=== PATIENT | male | born 1955 | race African-American/Black ===

== ENCOUNTER 2017-05-23 14:07 | Inpatient (IN) | payer OTHER ==
--- NOTE | 2017-05-23 23:37 | HP ---
CIWA Score - CIWA Score Nausea/Vomitin Muscle Tremors: 4-Moderate,w/Arms Extend Anxiety: 4-Mod. Anxious/Guarded Agitation: 4-Moderately Restless Paroxysmal Sweats: 1-Minimal Palms Moist Orientation: 1-Uncertain about Date Tacttile Disturbances: 0-None Auditory Disturbances: 0-None Visual Disturbances: 2-Mild Sensitivity Headache: 1-Very Mild CIWA-Ar Total Score: 20 Admission ROS BHS - HPI Chief Complaint: C/O ETOH WITHDRAWAL SX'S. SEEKING DETOX Allergies/Adverse Reactions: Allergies Allergy/AdvReac Type Severity Reaction Status Date / Time Penicillins Allergy Severe Hives Verified 05/23/17 23:29 History of Present Illness: 62 Y.O. MALE WITH ALCOHOLISM ADMITTED TO DETOX. SELF REFERRED. HE IS KNOWN TO [facility]. DENIES ANY SIGNIFICANT PERIOD OF CLEAN TIME OR RECENT DETOX/ REHAB SERVICES Exam Limitations: No Limitations - Ebola screening Have you traveled outside of the country in the last 21 days: No Have you had contact with anyone from an Ebola affected area: No Have you been sick,other than usual withdrawal symptoms: No Do you have a fever: No - Review of Systems Constitutional: Chills, Loss of Appetite, Unintentional Wgt. Loss EENT: reports: Dental Problems (MISSING TEETH) Respiratory: reports: Shortness of Breath, Other (H/O ASTHMA) Cardiac: reports: No Symptoms Reported GI: reports: Nausea, Poor Appetite : reports: No Symptoms Reported, Other (H/O PROSTATE CA) Musculoskeletal: reports: Back Pain Integumentary: reports: No Symptoms Reported Neuro: reports: No Symptoms reported Endocrine: reports: No Symptoms Reported Hematology: reports: No Symptoms Reported Psychiatric: reports: Anxious, Depressed Other Systems: Reviewed and Negative Patient History - Patient Medical History Hx Anemia: No Hx Asthma: Yes Hx Chronic Obstructive Pulmonary Disease (COPD): No Hx Cancer: No Hx Cardiac Disorders: No Hx Congestive Heart Failure: No Hx Hypertension: Yes Hx Hypercholesterolemia: Yes Hx Pacemaker: No HX Cerebrovascular Accident: No Hx Seizures: No Hx Dementia: No Hx Diabetes: No Hx Gastrointestinal Disorders: No Hx Liver Disease: No Hx Genitourinary Disorders: Yes (prostate ca) Hx Sexually Transmitted Disorders: No Hx Renal Disease (ESRD): No Hx Thyroid Disease: No Hx Human Immunodeficiency Virus (HIV): No Hx Hepatitis C: No Hx Depression: No Hx Suicide Attempt: No Hx Bipolar Disorder: No Hx Schizophrenia: No Other Medical History: DENIES - Patient Surgical History Past Surgical History: Yes Hx Orthopedic Surgery: Yes (knee, hip,back) Anesthesia Reaction: No - PPD History Previous Implant?: Yes Documented Results: Negative w/o proof Implanted On Prior R Admission?: Yes PPD to be Administered?: Yes - Smoking Cessation Smoking history: Current every day smoker Have you smoked in the past 12 months: Yes Aproximately how many cigarettes per day: 10 If you are a former smoker, when did you quit?: 09/19 Hx Chewing Tobacco Use: No Initiated information on smoking cessation: No - Substance & Tx. History Hx Alcohol Use: Yes Hx Substance Use: Yes Substance Use Type: Alcohol, Cocaine Hx Substance Use Treatment: Yes ([facility]) - Substances Abused BEER Route: Oral Frequency: Daily Amount used: 1 CASE Age of first use: 38 Date of Last Use: 05/23/17 COCAINE Route: Inhalation Frequency: 1-2 times per week Amount used: 1 GM Age of first use: 16 Date of Last Use: 05/21/17 Family Disease History - Family Disease History Family Disease History: Respiratory: Mother Admission Physical Exam [facility] - Vital Signs Vital Signs: Vital Signs - 24 hr 05/23/17 23:20 Temperature 96.0 F L Pulse Rate 56 L Respiratory 18 Rate Blood Pressure 155/88 - Physical General Appearance: Yes: Appropriately Dressed, Mild Distress, Tremorous, Irritable HEENTM: Yes: EOMI, Normocephalic, Pharynx Normal, Other (MISSING TEETH) Respiratory: Yes: Chest Non-Tender, Normal Breath Sounds, No Respiratory Distress, No Accessory Muscle Use Neck: Yes: No masses,lesions,Nodules, Supple, Trachea in good position Breast: Yes: Breast Exam Deferred Cardiology: Yes: Regular Rhythm, Regular Rate, S1, S2 Abdominal: Yes: Normal Bowel Sounds, Non Tender, Soft Genitourinary: Yes: Within Normal Limits Back: Yes: Normal Inspection Musculoskeletal: Yes: full range of Motion, Gait Steady Extremities: Yes: Normal Capillary Refill, Normal Range of Motion, Non-Tender, Tremors Neurological: Yes: Alert, Motor Strength 5/5 Integumentary: Yes: Dry, Warm Lymphatic: Yes: Within Normal Limits - Diagnostic (1) Asthma Current Visit: Yes Status: Chronic Qualifiers: Asthma severity: mild intermittent Asthma complication type: uncomplicated Qualified Code(s): J45.20 - Mild intermittent asthma, uncomplicated (2) Hyperlipidemia Current Visit: Yes Status: Chronic Qualifiers: Hyperlipidemia type: unspecified Qualified Code(s): E78.5 - Hyperlipidemia, unspecified (3) Hypertension Current Visit: Yes Status: Chronic Qualifiers: Hypertension type: essential hypertension Qualified Code(s): I10 - Essential (primary) hypertension (4) Nicotine dependence Current Visit: Yes Status: Chronic Qualifiers: Nicotine product type: cigarettes Substance use status: uncomplicated Qualified Code(s): F17.210 - Nicotine dependence, cigarettes, uncomplicated (5) Alcohol dependence with uncomplicated withdrawal Current Visit: Yes Status: Chronic (6) Cocaine dependence, uncomplicated Current Visit: Yes Status: Chronic Cleared for Admission S - Detox or Rehab [facility] Level of Care: Medically Managed Detox Regimen/Protocol: Librium [facility] Breath Alcohol Content Breath Alcohol Content: 0 Urine Drug Screen - Results Drug Screen Negative: No Urine Drug Screen Results: ADELA-Cocaine
[2017-05-23] MEDS ORDERED: MAGNESIUM CITRATE 300 ML BOTTLE PO PRN (23:39)
[2017-05-23] MEDS ORDERED: IBUPROFEN 400 MG TABLET (FP) PO PRN (23:39)
[2017-05-23] MEDS ORDERED: MENTHOL/PHENOL 1 EACH UD MM PRN (23:39)
[2017-05-23] MEDS ORDERED: guaiFENesin/D-METHORPHAN HB 10 ML UNIT-DOSE CUPS PO PRN (23:39)
[2017-05-23] MEDS ORDERED: MAG HYDROX/AL HYDROX/SIMETH 30 ML UNIT-DOSE CUP PO PRN (23:39)
[2017-05-23] MEDS ORDERED: P-EPHED 60MG/TRIPROLIDI 2.5MG TABLET PO PRN (23:39)
[2017-05-23] MEDS ORDERED: ACETAMINOPHEN 325 MG TABLET (FP) PO PRN (23:39)
[2017-05-23] MEDS ORDERED: NICOTINE POLACRILEX 2 MG GUM BC PRN (23:39)
[2017-05-23] MEDS ORDERED: diphenhydrAMINE HCL 50 MG CAPSULE PO PRN (23:39)
[2017-05-23] MEDS ORDERED: hydrOXYzine PAMOATE 50 MG CAPSULE (FP) PO PRN (23:39)
[2017-05-23] MEDS ORDERED: LOPERAMIDE HCL 2 MG CAPSULE PO PRN (23:39)
[2017-05-23] MEDS ORDERED: chlordiazePOXIDE HCL 25 MG CAPSULE PO PRN (23:39)
[2017-05-23] MEDS ORDERED: MAGNESIUM HYDROX 2400MG/30ML ORAL SUSPENSION 30 ML CUP PO PRN (23:39)
[2017-05-23] MEDS ORDERED: ALBUTEROL SO4 6.7 GM HFA INHALER IH PRN (23:41)
[2017-05-24] MEDS: chlordiazePOXIDE HCL 25 MG CAPSULE PO SCH ×5 (00:19→22:18)
[2017-05-24 09:58] LABS: MCH 30.8 pg (25.7-33.7); MCHC 32.5 g/dl (32.0-35.9); MEAN CELL VOLUME 94.8 fl (80-96); PLATELET COUNT 222 K/MM3 (134-434); RDW 15.1 % (11.9-15.9); WHITE BLOOD COUNT 4.7 K/mm3 (4.0-10.0)
[2017-05-24 10:17] LABS: ALBUMIN 3.2 g/dl (3.4-5.0); ALK PHOS 113 U/L (45-117); ANION GAP 5 (8-16); BILIRUBIN,TOTAL 0.8 mg/dL (0.2-1.0); CALCIUM 8.7 mg/dL (8.5-10.1); CO2 31 mmol/L (21-32); CREATININE 1.1 mg/dL (0.7-1.3); GLUCOSE,RANDOM 150 mg/dL (74-106); SGOT/AST 24 U/L (15-37); SGPT/ALT 26 U/L (12-78); TOT PROT 6.2 g/dl (6.4-8.2)
[2017-05-24] MEDS: NICOTINE 14 MG/24 HOURS TOPICAL PATCH TD SCH (10:41)
[2017-05-24] MEDS: PRENATAL VITAMINS W/ FOLIC ACID TABLET (FP) PO SCH (10:41)
--- NOTE | 2017-05-24 11:39 | PN ---
[facility] CIWA - CIWA Score Nausea/Vomitin-Mild Nausea/No Vomiting Muscle Tremors: 3 Anxiety: 5 Agitation: 3 Paroxysmal Sweats: 3 Orientation: 0-Oriented Tacttile Disturbances: 3-Moderate Itch/Numb/Burn Auditory Disturbances: 0-None Visual Disturbances: 0-None Headache: 0-None Present CIWA-Ar Total Score: 18 BHS Progress Note (SOAP) Subjective: Anxious, Body Aches, Sweating. Objective: PT. A & O X 3. NO ACUTE DISTRESS. PT. DENIES CHEST PAIN. 05/24/17 11:30 Vital Signs Temperature 96.8 F L 05/24/17 06:56 Pulse Rate 67 05/24/17 06:56 Respiratory Rate 18 05/24/17 06:56 Blood Pressure 137/89 05/24/17 06:56 O2 Sat by Pulse Oximetry (%) Laboratory Tests 05/24/17 05/24/17 07:00 07:00 WBC 4.7 RBC 4.27 Hgb 13.1 Hct 40.5 MCV 94.8 MCH 30.8 MCHC 32.5 RDW 15.1 Plt Count 222 MPV 10.0 Sodium 144 Potassium 3.9 Chloride 108 H Carbon Dioxide 31 Anion Gap 5 L BUN 22 H Creatinine 1.1 Creat Clearance w eGFR > 60 Random Glucose 150 H D Calcium 8.7 Total Bilirubin 0.8 AST 24 ALT 26 Alkaline Phosphatase 113 Total Protein 6.2 L Albumin 3.2 L LABS NOTED. RPR, HCV AB, AND UA RESULTS PENDING. 05/24/17 11:41 Assessment: 05/24/17 11:39 WITHDRAWAL SYMPTOMS. Plan: CONTINUE DETOX. BGM ACBK FOR ELEVATED ADMISSION RANDOM GLUCOSE LEVEL. INCREASE DAILY PO FLUID INTAKE.
[2017-05-24] MEDS: THIAMINE HCL 100 MG TABLET (FP) PO SCH (22:18)
--- NOTE | 2017-05-24 22:23 | EKG ---
Test Reason : Blood Pressure : / mmHG Vent. Rate : 058 BPM Atrial Rate : 058 BPM P-R Int : 176 ms QRS Dur : 086 ms QT Int : 458 ms P-R-T Axes : 067 032 041 degrees QTc Int : 449 ms SINUS BRADYCARDIA WITH FIRST DEGREE AV BLOCK POSSIBLE LEFT ATRIAL ENLARGEMENT LEFT VENTRICULAR HYPERTROPHY ABNORMAL ECG NO PREVIOUS ECGS AVAILABLE REPEAT EKG IF CLINICALLY INDICATED Confirmed by SHREYA MARMOLEJO MD ([id number]) on 05/24/2017 10:23:15 PM Referred By: Jake Cruz Confirmed By:SHREYA MARMOLEJO MD
[2017-05-25] MEDS: chlordiazePOXIDE HCL 25 MG CAPSULE PO SCH ×3 (06:47→17:25)
[2017-05-25] MEDS: NICOTINE 14 MG/24 HOURS TOPICAL PATCH TD SCH (10:44)
[2017-05-25] MEDS: PRENATAL VITAMINS W/ FOLIC ACID TABLET (FP) PO SCH (10:44)
--- NOTE | 2017-05-25 16:24 | PN ---
[facility] CIWA - CIWA Score Nausea/Vomitin-No Nausea/No Vomiting Muscle Tremors: 2 Anxiety: 4-Mod. Anxious/Guarded Agitation: 2 Paroxysmal Sweats: 1-Minimal Palms Moist Orientation: 2-Disoriented Date<2 days Tacttile Disturbances: 3-Moderate Itch/Numb/Burn Auditory Disturbances: 2-Mild Harshness/Frighten Visual Disturbances: 2-Mild Sensitivity Headache: 0-None Present CIWA-Ar Total Score: 18 S Progress Note (SOAP) Subjective: Fatigue, Body Aches, Anxious. Objective: PT. A & O X 2 (DISORIENTED ABOUT DAY / DATE). NO ACUTE DISTRESS. PT. DENIES CHEST PAIN. 05/25/17 16:22 Vital Signs Temperature 97.6 F 05/25/17 14:25 Pulse Rate 71 05/25/17 14:25 Respiratory Rate 18 05/25/17 14:25 Blood Pressure 146/91 05/25/17 14:25 O2 Sat by Pulse Oximetry (%) Laboratory Tests 05/23/17 05/24/17 05/24/17 07:00 07:00 07:00 WBC 4.7 RBC 4.27 Hgb 13.1 Hct 40.5 MCV 94.8 MCH 30.8 MCHC 32.5 RDW 15.1 Plt Count 222 MPV 10.0 Sodium 144 Potassium 3.9 Chloride 108 H Carbon Dioxide 31 Anion Gap 5 L BUN 22 H Creatinine 1.1 Creat Clearance w eGFR > 60 Random Glucose 150 H D Calcium 8.7 Total Bilirubin 0.8 AST 24 ALT 26 Alkaline Phosphatase 113 Total Protein 6.2 L Albumin 3.2 L RPR Titer Hepatitis C Antibody <0.1 05/24/17 07:00 WBC RBC Hgb Hct MCV MCH MCHC RDW Plt Count MPV Sodium Potassium Chloride Carbon Dioxide Anion Gap BUN Creatinine Creat Clearance w eGFR Random Glucose Calcium Total Bilirubin AST ALT Alkaline Phosphatase Total Protein Albumin RPR Titer Nonreactive Hepatitis C Antibody LABS NOTED. UA RESULTS PENDING. 05/25/17 16:23 Assessment: 05/25/17 16:22 WITHDRAWAL SYMPTOMS. Plan: CONTINUED DETOX. INCREASE DAILY PO FLUID INTAKE.
[2017-05-25 17:26] VITALS: BP 135/85; PULSE 68; TEMP 97.8
[2017-05-25] MEDS: LIDOCAINE 5% TOPICAL PATCH TP SCH (17:26)
[2017-05-25] MEDS ORDERED: LIDOCAINE PATCH REMOVAL MC SCH (22:00)
[2017-05-25] MEDS: THIAMINE HCL 100 MG TABLET (FP) PO SCH (22:29)
[2017-05-25] MEDS: chlordiazePOXIDE 5 MG CAPSULE PO SCH (22:29)
[2017-05-26] MEDS: chlordiazePOXIDE 5 MG CAPSULE PO SCH ×2 (07:03→11:14)
[2017-05-26] MEDS: LIDOCAINE 5% TOPICAL PATCH TP SCH (11:13)
[2017-05-26] MEDS: NICOTINE 14 MG/24 HOURS TOPICAL PATCH TD SCH (11:14)
[2017-05-26] MEDS: PRENATAL VITAMINS W/ FOLIC ACID TABLET (FP) PO SCH (11:14)
--- NOTE | 2017-05-26 12:05 | DS ---
[facility] Detox Discharge Summary Admission Date: 05/23/17 Discharge Date: 05/26/17 - History Present History: Alcohol Dependence Pertinent Past History: Asthma HTN Hyperlipidemia Hx. of Prostate Ca. - Physical Exam Results Vital Signs: Vital Signs Temperature 97.8 F 05/25/17 17:25 Pulse Rate 68 05/25/17 17:25 Respiratory Rate 18 05/26/17 06:18 Blood Pressure 135/85 05/25/17 17:25 O2 Sat by Pulse Oximetry (%) Pertinent Admission Physical Exam Findings: Withdrawal sx. Laboratory Last Values WBC 4.7 K/mm3 (4.0-10.0) 05/24/17 07:00 RBC 4.27 M/mm3 (4.00-5.60) 05/24/17 07:00 Hgb 13.1 GM/dL (11.7-16.9) 05/24/17 07:00 Hct 40.5 % (35.4-49) 05/24/17 07:00 MCV 94.8 fl (80-96) 05/24/17 07:00 MCH 30.8 pg (25.7-33.7) 05/24/17 07:00 MCHC 32.5 g/dl (32.0-35.9) 05/24/17 07:00 RDW 15.1 % (11.9-15.9) 05/24/17 07:00 Plt Count 222 K/MM3 (134-434) 05/24/17 07:00 MPV 10.0 fl (7.5-11.1) 05/24/17 07:00 Sodium 144 mmol/L (136-145) 05/24/17 07:00 Potassium 3.9 mmol/L (3.5-5.1) 05/24/17 07:00 Chloride 108 mmol/L (98-107) H 05/24/17 07:00 Carbon Dioxide 31 mmol/L (21-32) 05/24/17 07:00 Anion Gap 5 (8-16) L 05/24/17 07:00 BUN 22 mg/dL (7-18) H 05/24/17 07:00 Creatinine 1.1 mg/dL (0.7-1.3) 05/24/17 07:00 Creat Clearance w eGFR > 60 (>60) 05/24/17 07:00 POC Glucometer 104 UNITS (()) 05/26/17 07:30 Random Glucose 150 mg/dL (74-106) H D 05/24/17 07:00 Calcium 8.7 mg/dL (8.5-10.1) 05/24/17 07:00 Total Bilirubin 0.8 mg/dL (0.2-1.0) 05/24/17 07:00 AST 24 U/L (15-37) 05/24/17 07:00 ALT 26 U/L (12-78) 05/24/17 07:00 Alkaline Phosphatase 113 U/L (45-117) 05/24/17 07:00 Total Protein 6.2 g/dl (6.4-8.2) L 05/24/17 07:00 Albumin 3.2 g/dl (3.4-5.0) L 05/24/17 07:00 RPR Titer Nonreactive (NONREACTIVE) 05/24/17 07:00 Hepatitis C Antibody <0.1 s/co ratio (0.0-0.9) 05/23/17 07:00 labs noted - Treatment Hospital Course: Detox Protocol Followed, Detoxed Safely, Responded well, Discharged Condition Good, Rehab Referral Accepted Patient has Accepted a Rehab Referral to: [facility] rehab at [facility] - Medication Discharge Medications: Ambulatory Orders Albuterol Sulfate Inhaler - [Ventolin HFA Inhaler -] 2 inh PO Q4H PRN #1 canister 03/23/15 - Diagnosis (1) Alcohol dependence with uncomplicated withdrawal Current Visit: Yes Status: Chronic (2) Asthma Current Visit: Yes Status: Chronic Qualifiers: Asthma severity: mild intermittent Asthma complication type: uncomplicated Qualified Code(s): J45.20 - Mild intermittent asthma, uncomplicated (3) Cocaine dependence, uncomplicated Current Visit: Yes Status: Chronic (4) Hyperlipidemia Current Visit: Yes Status: Chronic Qualifiers: Hyperlipidemia type: unspecified Qualified Code(s): E78.5 - Hyperlipidemia, unspecified (5) Hypertension Current Visit: Yes Status: Chronic Qualifiers: Hypertension type: essential hypertension Qualified Code(s): I10 - Essential (primary) hypertension (6) Nicotine dependence Current Visit: Yes Status: Chronic Qualifiers: Nicotine product type: cigarettes Substance use status: uncomplicated Qualified Code(s): F17.210 - Nicotine dependence, cigarettes, uncomplicated (7) History of prostate cancer Current Visit: Yes Status: Acute - AMA Did Patient Leave Against Medical Advice: No
[2017-05-26] MEDS ORDERED: LISINOPRIL 10 MG TABLET (FP) PO SCH (12:15)
[2017-05-26] MEDS ORDERED: chlordiazePOXIDE HCL 10 MG CAPSULE PO SCH (23:00)
== END 2017-05-26 12:00 | disposition other institution (70) | DRG 774 ==
LOC: YASAS 14:07 → Y3N 23:44
PROVIDERS: ADMIT Internal Medicine; ATTEND Internal Medicine
PROC: HZ2ZZZZ Detoxification Services for Substance Abuse Treatment (ICD-10-PCS; principal; 2017-05-23)
DX: F10.230 Alcohol dependence with withdrawal, uncomplicated (principal); F14.20 Cocaine dependence, uncomplicated; F17.210 Nicotine dependence, cigarettes, uncomplicated; I10 Essential (primary) hypertension; J45.20 Mild intermittent asthma, uncomplicated; E78.00 Pure hypercholesterolemia, unspecified; Z85.46 Personal history of malignant neoplasm of prostate
CPT/HCPCS: 36415; 71020-TC; 80053; 85027; 86593; 86803; 93005; 93010

== ENCOUNTER 2017-05-26 12:28 | Inpatient (IN) | payer OTHER ==
--- NOTE | 2017-05-26 14:10 | HP ---
[facility] Rehab Assess/Revision - Admission History Ad[facility] to Rehab [facility]: [facility] Date of Admission to Rehab: 05/26/17 - Findings Detox History & Physical reviewed: Yes Concur with findings: Yes Comments/Additional Findings: patient reports slipping and falling prior to admission to [facility] c/o pain and swelling left elbow. not improving, no signs of inflammation, infection or torture, but flutuant swelling, fluid accumulation
[2017-05-26] MEDS ORDERED: guaiFENesin/D-METHORPHAN HB 10 ML UNIT-DOSE CUPS PO PRN (14:11)
[2017-05-26] MEDS ORDERED: hydrOXYzine PAMOATE 50 MG CAPSULE (FP) PO PRN (14:11)
[2017-05-26] MEDS ORDERED: LOPERAMIDE HCL 2 MG CAPSULE PO PRN (14:11)
[2017-05-26] MEDS ORDERED: MAGNESIUM CITRATE 300 ML BOTTLE PO PRN (14:11)
[2017-05-26] MEDS ORDERED: ACETAMINOPHEN 325 MG TABLET (FP) PO PRN (14:11)
[2017-05-26] MEDS ORDERED: MAG HYDROX/AL HYDROX/SIMETH 30 ML UNIT-DOSE CUP PO PRN (14:11)
[2017-05-26] MEDS ORDERED: P-EPHED 60MG/TRIPROLIDI 2.5MG TABLET PO PRN (14:11)
[2017-05-26] MEDS ORDERED: MAGNESIUM HYDROX 2400MG/30ML ORAL SUSPENSION 30 ML CUP PO PRN (14:11)
[2017-05-26] MEDS ORDERED: MENTHOL/PHENOL 1 EACH UD MM PRN (14:11)
[2017-05-26] MEDS ORDERED: ALBUTEROL SO4 18 GM HFA INHALER IH PRN (14:13)
[2017-05-26] MEDS: PANTOPRAZOLE 40 MG TABLET (FP) PO SCH (15:25)
[2017-05-26] MEDS: GABAPENTIN 100 MG CAPSULE (FP) PO SCH ×2 (15:26→22:24)
[2017-05-26] MEDS: DULoxetine HCL 20 MG CAPSULE.DR (FP) PO SCH (15:26)
[2017-05-26] MEDS: NAPROXEN 500 MG TABLET (FP) PO SCH (22:24)
[2017-05-26] MEDS: THIAMINE HCL 100 MG TABLET (FP) PO SCH (22:25)
[2017-05-27] MEDS: GABAPENTIN 100 MG CAPSULE (FP) PO SCH ×3 (06:56→22:02)
--- NOTE | 2017-05-27 09:59 | HP ---
[facility] Rehab Assess/Revision - Vital signs Vital Signs: Vital Signs Period Temp Pulse Resp BP Sys/Duron Pulse Ox Last 24 Hr 18-18 Inpatient Rehab Admission - Initial Determination Are CD services needed?: Yes Free of communicable disease: Yes Not in need of hospitalization: Yes - Rehab Admission Criteria Comorbidities: Yes Patient is meeting Inpatient Rehab admission criteria:: Yes
[2017-05-27] MEDS: DULoxetine HCL 20 MG CAPSULE.DR (FP) PO SCH (10:35)
[2017-05-27] MEDS: NAPROXEN 500 MG TABLET (FP) PO SCH ×2 (10:35→22:02)
[2017-05-27] MEDS: PRENATAL VITAMINS W/ FOLIC ACID TABLET (FP) PO SCH (10:35)
[2017-05-27] MEDS: PANTOPRAZOLE 40 MG TABLET (FP) PO SCH (10:36)
--- NOTE | 2017-05-27 12:19 | HP ---
Psychiatrist Admission - Data Date of interview: 05/27/17 Admission source: 3N Identifying data: This is the first 5N inpatient rehabilitaiton admission for thsi 62 year old unemployed AA male. Medical History: Asthma, HTN, high cholesterol, prostate Ca and arthritis to lower back, left knee and left hip, had a spinal fusion 2016 and orthoscopic surg to his left hip and knee. Cataract to right eye. Psychiatric History: Patient is irritable and uncoopertive, he came to the office and left after greeting.Writter went to the patient's room and continued interviwing patient at bedsides. Patient reports that he is in pain and can't sit, stating he does not know if he will stay here. He reports he had a "very bad divorce" and feeling sad, when discussed about medications, patient reported he does not need "any generic medications I don't want any experiments on me". "You can't help me, I has cancer and surgery on my back, in pain".He denies psychiatric hospitalizatons. Physical/Sexual Abuse/Trauma History: Denies Vital Signs: Vital Signs - 24 hr 05/27/17 05/27/17 05/27/17 00:30 03:28 06:50 Respiratory 18 18 18 Rate Allergies/Adverse Reactions: Allergies Allergy/AdvReac Type Severity Reaction Status Date / Time Penicillins Allergy Severe Hives Verified 05/23/17 23:29 Date of last physical exam: 05/23/17 Concur with the findings of this exam: Yes - Substance Abuse/Tx History Hx Alcohol Use: Yes (baar daily use, 1 case) Hx Substance Use: Yes Substance Use Type: Cocaine ( 1 gr 1-2 x week) Hx Substance Use Treatment: Yes Mental Status Exam - Mental Status Exam Alert and Oriented to: Time, Place, Person Cognitive Function: Grossly Intact Patient Appearance: Well Groomed Mood: Angry, Hostile, Irritable Affect: Mood Congruent Patient Behavior: Resitive to Care Speech Pattern: Clear Voice Loudness: Normal Thought Process: Goal Oriented Thought Disorder: Not Present Hallucinations: Denies Suicidal Ideation: Denies Homicidal Ideation: Denies Insight/Judgement: Fair Sleep: Fair Appetite: Fair Muscle strength/Tone: Normal Gait/Station: Other (unsteady gait) Psychiatric Findings - Problem List (Baxter 1, 2,3) (1) Alcohol dependence Current Visit: No Status: Chronic (2) Cocaine dependence Current Visit: Yes Status: Acute (3) Substance induced mood disorder Current Visit: Yes Status: Acute - Initial Treatment Plan Initial Treatment Plan: will monitor progress as needed.
[2017-05-27] MEDS: THIAMINE HCL 100 MG TABLET (FP) PO SCH (22:02)
[2017-05-28] MEDS: GABAPENTIN 100 MG CAPSULE (FP) PO SCH ×3 (07:25→21:33)
[2017-05-28] MEDS: NAPROXEN 500 MG TABLET (FP) PO SCH ×2 (11:22→21:33)
[2017-05-28] MEDS: PRENATAL VITAMINS W/ FOLIC ACID TABLET (FP) PO SCH (11:22)
[2017-05-28] MEDS: DULoxetine HCL 20 MG CAPSULE.DR (FP) PO SCH (11:22)
[2017-05-28] MEDS: PANTOPRAZOLE 40 MG TABLET (FP) PO SCH (11:22)
[2017-05-28] MEDS: THIAMINE HCL 100 MG TABLET (FP) PO SCH (21:33)
[2017-05-29] MEDS: GABAPENTIN 100 MG CAPSULE (FP) PO SCH ×3 (07:03→22:03)
[2017-05-29] MEDS: NAPROXEN 500 MG TABLET (FP) PO SCH ×3 (11:51→22:03)
[2017-05-29] MEDS: PANTOPRAZOLE 40 MG TABLET (FP) PO SCH ×2 (11:51→13:10)
[2017-05-29] MEDS: PRENATAL VITAMINS W/ FOLIC ACID TABLET (FP) PO SCH (11:51)
[2017-05-29] MEDS: DULoxetine HCL 20 MG CAPSULE.DR (FP) PO SCH (11:51)
[2017-05-29] MEDS: THIAMINE HCL 100 MG TABLET (FP) PO SCH (22:03)
[2017-05-30] MEDS: GABAPENTIN 100 MG CAPSULE (FP) PO SCH ×3 (06:43→21:18)
[2017-05-30] MEDS ORDERED: PT OWN MED DRAWER 7, Y5N ONE (09:04)
[2017-05-30] MEDS: PRENATAL VITAMINS W/ FOLIC ACID TABLET (FP) PO SCH (11:30)
[2017-05-30] MEDS: PANTOPRAZOLE 40 MG TABLET (FP) PO SCH (11:31)
[2017-05-30] MEDS: NAPROXEN 500 MG TABLET (FP) PO SCH ×2 (11:31→21:18)
[2017-05-30] MEDS: DULoxetine HCL 20 MG CAPSULE.DR (FP) PO SCH (11:31)
[2017-05-30] MEDS: diphenhydrAMINE HCL 50 MG CAPSULE PO PRN (21:18)
[2017-05-30] MEDS: THIAMINE HCL 100 MG TABLET (FP) PO SCH (21:18)
[2017-05-31] MEDS: GABAPENTIN 100 MG CAPSULE (FP) PO SCH ×3 (06:49→21:46)
[2017-05-31] MEDS: PRENATAL VITAMINS W/ FOLIC ACID TABLET (FP) PO SCH (10:44)
[2017-05-31] MEDS: PANTOPRAZOLE 40 MG TABLET (FP) PO SCH (10:44)
[2017-05-31] MEDS: NAPROXEN 500 MG TABLET (FP) PO SCH ×2 (10:44→21:46)
[2017-05-31] MEDS: DULoxetine HCL 20 MG CAPSULE.DR (FP) PO SCH (10:44)
[2017-05-31] MEDS: diphenhydrAMINE HCL 50 MG CAPSULE PO PRN (21:46)
[2017-05-31] MEDS: THIAMINE HCL 100 MG TABLET (FP) PO SCH (21:46)
[2017-06-01] MEDS: GABAPENTIN 100 MG CAPSULE (FP) PO SCH ×3 (06:44→21:34)
[2017-06-01] MEDS: DULoxetine HCL 20 MG CAPSULE.DR (FP) PO SCH (10:37)
[2017-06-01] MEDS: PRENATAL VITAMINS W/ FOLIC ACID TABLET (FP) PO SCH (10:37)
[2017-06-01] MEDS: PANTOPRAZOLE 40 MG TABLET (FP) PO SCH (10:37)
[2017-06-01] MEDS: NAPROXEN 500 MG TABLET (FP) PO SCH ×2 (10:37→21:33)
[2017-06-01] MEDS: THIAMINE HCL 100 MG TABLET (FP) PO SCH (21:34)
[2017-06-02] MEDS: GABAPENTIN 100 MG CAPSULE (FP) PO SCH ×3 (06:55→22:23)
[2017-06-02] MEDS: PRENATAL VITAMINS W/ FOLIC ACID TABLET (FP) PO SCH (10:35)
[2017-06-02] MEDS: PANTOPRAZOLE 40 MG TABLET (FP) PO SCH (10:35)
[2017-06-02] MEDS: NAPROXEN 500 MG TABLET (FP) PO SCH ×2 (10:35→22:23)
[2017-06-02] MEDS: DULoxetine HCL 20 MG CAPSULE.DR (FP) PO SCH (10:35)
[2017-06-02] MEDS: THIAMINE HCL 100 MG TABLET (FP) PO SCH (22:23)
[2017-06-03] MEDS: GABAPENTIN 100 MG CAPSULE (FP) PO SCH ×3 (07:14→21:42)
[2017-06-03] MEDS: LISINOPRIL 10 MG TABLET (FP) PO SCH ×2 (11:42→21:42)
[2017-06-03] MEDS: PRENATAL VITAMINS W/ FOLIC ACID TABLET (FP) PO SCH (11:42)
[2017-06-03] MEDS: DULoxetine HCL 20 MG CAPSULE.DR (FP) PO SCH (11:42)
[2017-06-03] MEDS: NAPROXEN 500 MG TABLET (FP) PO SCH ×2 (11:42→21:42)
[2017-06-03] MEDS: PANTOPRAZOLE 40 MG TABLET (FP) PO SCH (11:43)
[2017-06-03] MEDS: THIAMINE HCL 100 MG TABLET (FP) PO SCH (21:42)
[2017-06-04] MEDS: GABAPENTIN 100 MG CAPSULE (FP) PO SCH ×3 (06:57→21:24)
[2017-06-04] MEDS: PRENATAL VITAMINS W/ FOLIC ACID TABLET (FP) PO SCH (10:54)
[2017-06-04] MEDS: DULoxetine HCL 20 MG CAPSULE.DR (FP) PO SCH (10:54)
[2017-06-04] MEDS: LISINOPRIL 10 MG TABLET (FP) PO SCH ×2 (10:54→21:24)
[2017-06-04] MEDS: NAPROXEN 500 MG TABLET (FP) PO SCH ×2 (10:54→21:24)
[2017-06-04] MEDS: PANTOPRAZOLE 40 MG TABLET (FP) PO SCH (10:54)
[2017-06-04] MEDS: diphenhydrAMINE HCL 50 MG CAPSULE PO PRN (21:24)
[2017-06-04] MEDS: THIAMINE HCL 100 MG TABLET (FP) PO SCH (21:24)
[2017-06-05] MEDS: GABAPENTIN 100 MG CAPSULE (FP) PO SCH ×3 (06:47→21:33)
[2017-06-05] MEDS: NAPROXEN 500 MG TABLET (FP) PO SCH ×2 (10:46→21:33)
[2017-06-05] MEDS: DULoxetine HCL 20 MG CAPSULE.DR (FP) PO SCH (10:46)
[2017-06-05] MEDS: PRENATAL VITAMINS W/ FOLIC ACID TABLET (FP) PO SCH (10:46)
[2017-06-05] MEDS: PANTOPRAZOLE 40 MG TABLET (FP) PO SCH (10:46)
[2017-06-05] MEDS: LISINOPRIL 10 MG TABLET (FP) PO SCH ×2 (10:46→21:33)
[2017-06-05] MEDS: THIAMINE HCL 100 MG TABLET (FP) PO SCH (21:34)
[2017-06-05] MEDS: diphenhydrAMINE HCL 50 MG CAPSULE PO PRN (21:35)
[2017-06-06] MEDS: diphenhydrAMINE HCL 50 MG CAPSULE PO PRN ×2 (00:26→21:40)
[2017-06-06] MEDS: GABAPENTIN 100 MG CAPSULE (FP) PO SCH ×3 (06:44→21:39)
[2017-06-06] MEDS: NAPROXEN 500 MG TABLET (FP) PO SCH ×2 (10:18→21:39)
[2017-06-06] MEDS: PRENATAL VITAMINS W/ FOLIC ACID TABLET (FP) PO SCH (10:18)
[2017-06-06] MEDS: PANTOPRAZOLE 40 MG TABLET (FP) PO SCH (10:18)
[2017-06-06] MEDS: LISINOPRIL 10 MG TABLET (FP) PO SCH ×2 (10:18→21:39)
[2017-06-06] MEDS: DULoxetine HCL 20 MG CAPSULE.DR (FP) PO SCH (10:18)
--- NOTE | 2017-06-06 13:05 | PN ---
[facility] Progress Note Note: c/o tauma left elbow several weeks ago now w increasing pain and swelling on elbow o/ flkocculent swelling and bony tenderness left elbow no infection or erythema a/p: fluid accumulation left elbow 2/2 traum xray r/o fx
[2017-06-06] MEDS: CYCLOBENZAPRINE HCL 5 MG TABLET PO SCH ×2 (13:57→21:39)
[2017-06-06] MEDS: THIAMINE HCL 100 MG TABLET (FP) PO SCH (21:39)
[2017-06-07] MEDS: CYCLOBENZAPRINE HCL 5 MG TABLET PO SCH ×3 (07:29→21:36)
[2017-06-07] MEDS: GABAPENTIN 100 MG CAPSULE (FP) PO SCH ×3 (07:29→21:36)
[2017-06-07] MEDS: DULoxetine HCL 20 MG CAPSULE.DR (FP) PO SCH (10:18)
[2017-06-07] MEDS: PRENATAL VITAMINS W/ FOLIC ACID TABLET (FP) PO SCH (10:18)
[2017-06-07] MEDS: LISINOPRIL 10 MG TABLET (FP) PO SCH ×2 (10:18→21:36)
[2017-06-07] MEDS: PANTOPRAZOLE 40 MG TABLET (FP) PO SCH (10:18)
[2017-06-07] MEDS: NAPROXEN 500 MG TABLET (FP) PO SCH ×2 (10:18→21:36)
[2017-06-07] MEDS: THIAMINE HCL 100 MG TABLET (FP) PO SCH (21:35)
[2017-06-08] MEDS: CYCLOBENZAPRINE HCL 5 MG TABLET PO SCH ×3 (06:41→21:33)
[2017-06-08] MEDS: GABAPENTIN 100 MG CAPSULE (FP) PO SCH ×3 (06:41→21:33)
[2017-06-08] MEDS: PANTOPRAZOLE 40 MG TABLET (FP) PO SCH (10:11)
[2017-06-08] MEDS: DULoxetine HCL 20 MG CAPSULE.DR (FP) PO SCH (10:11)
[2017-06-08] MEDS: PRENATAL VITAMINS W/ FOLIC ACID TABLET (FP) PO SCH (10:11)
[2017-06-08] MEDS: NAPROXEN 500 MG TABLET (FP) PO SCH ×2 (10:11→21:33)
[2017-06-08] MEDS: LISINOPRIL 10 MG TABLET (FP) PO SCH ×2 (10:12→21:33)
[2017-06-08] MEDS: THIAMINE HCL 100 MG TABLET (FP) PO SCH (21:33)
[2017-06-09] MEDS: GABAPENTIN 100 MG CAPSULE (FP) PO SCH (06:08)
[2017-06-09] MEDS: CYCLOBENZAPRINE HCL 5 MG TABLET PO SCH (06:09)
[2017-06-09 06:46] VITALS: TEMP 98.3
[2017-06-09] MEDS: PRENATAL VITAMINS W/ FOLIC ACID TABLET (FP) PO SCH (09:15)
[2017-06-09] MEDS: DULoxetine HCL 20 MG CAPSULE.DR (FP) PO SCH (09:15)
[2017-06-09] MEDS: PANTOPRAZOLE 40 MG TABLET (FP) PO SCH (09:16)
[2017-06-09] MEDS: NAPROXEN 500 MG TABLET (FP) PO SCH (09:16)
[2017-06-09] MEDS: LISINOPRIL 10 MG TABLET (FP) PO SCH (09:16)
[2017-06-09 10:29] VITALS: BP 140/83; PULSE 56
--- NOTE | 2017-06-09 12:39 | PN ---
Psychiatric Progress Note Vital Signs: Vital Signs Period Temp Pulse Resp BP Sys/Duron Pulse Ox Last 24 Hr 98.3 F 56-75 16-18 128-156/83-90 Date of Session: 06/09/17 Chief Complaint:: discharge visit HPI: Patient has addressed alcohol, cocaine dependence comorbid substance induced mood disorder. ROS: Asthma, HTN, high cholesterol, prostate Ca and arthritis to lower back, left knee and left hip. Current Side Effect: No Lab tests ordered: No Lab tests reviewed: Yes Provider note:: Patient has completed today his treatment and met his goals, will continue to address his issues at [facility]. Patient gained insights into importance of changing attitude for the utilization of supports to prevent relapses. Scripts provided for 30 days, patient is stable for discharge today. Total face to face time:: 10 Mental Status Exam - Mental Status Exam Alert and Oriented to: Time, Place, Person Cognitive Function: Good Patient Appearance: Well Groomed Mood: Hopeful Affect: Appropriate Patient Behavior: Cooperative Speech Pattern: Clear Voice Loudness: Normal Thought Process: Goal Oriented Thought Disorder: Not Present Hallucinations: Denies Suicidal Ideation: Denies Homicidal Ideation: Denies Insight/Judgement: Fair Sleep: Fair Appetite: Good Muscle strength/Tone: Normal Gait/Station: Normal
== END 2017-06-09 11:00 | disposition home or self-care (01) | DRG 772 ==
LOC: YASAS 12:28 → Y5N 12:29
PROVIDERS: ADMIT Psychiatry & Neurology Psychiatry; ATTEND Psychiatry & Neurology Psychiatry
PROC: HZ42ZZZ Group Counseling for Substance Abuse Treatment, Cognitive-Behavioral (ICD-10-PCS; principal; 2017-05-26)
DX: F10.20 Alcohol dependence, uncomplicated (principal); F14.20 Cocaine dependence, uncomplicated; F19.24 Other psychoactive substance dependence with psychoactive substance-induced mood disorder; I10 Essential (primary) hypertension; J45.909 Unspecified asthma, uncomplicated; E78.00 Pure hypercholesterolemia, unspecified; H26.9 Unspecified cataract; Z85.46 Personal history of malignant neoplasm of prostate; M46.97 Unspecified inflammatory spondylopathy, lumbosacral region; M25.522 Pain in left elbow; M25.422 Effusion, left elbow
CPT/HCPCS: 73070-TC-LT

== ENCOUNTER 2023-06-15 11:50 | Inpatient (IN) | payer OTHER ==
[2023-06-15 12:22] VITALS: BMI 17.0
[2023-06-15] MEDS ORDERED: BISMUTH SUBSALICYLATE 262 MG/15 ML BTL PO PRN (13:11)
[2023-06-15] MEDS ORDERED: POLYETHYLENE GLYCOL (HEALTHYLAX) 3350 17 GM PACKET PO PRN (13:11)
[2023-06-15] MEDS ORDERED: BENZOCAINE/MENTHOL (CHLORASEPTIC ) LOZENGE MM PRN (13:11)
[2023-06-15] MEDS ORDERED: IBUPROFEN 400 MG TABLET (FP) PO PRN (13:11)
[2023-06-15] MEDS ORDERED: NALOXONE HCL 0.4 MG/ML VIAL IM PRN (13:11)
[2023-06-15] MEDS ORDERED: NALOXONE HCL (KLOXXADO) 8 MG SPRAY NS PRN (13:11)
[2023-06-15] MEDS ORDERED: LOPERAMIDE HCL 2 MG CAPSULE PO PRN (13:11)
[2023-06-15] MEDS ORDERED: hydrOXYzine PAMOATE 25 MG CAPSULE (FP) PO PRN (13:11)
[2023-06-15] MEDS ORDERED: MAGNESIUM HYDROX 2400MG/30ML ORAL SUSPENSION 30 ML CUP PO PRN (13:11)
[2023-06-15] MEDS ORDERED: guaiFENesin 600 MG TABLET.ER (FP) PO PRN (13:11)
[2023-06-15] MEDS ORDERED: ACETAMINOPHEN 325 MG TABLET (FP) PO PRN (13:11)
[2023-06-15] MEDS ORDERED: BENZONATATE 200 MG CAPSULE PO PRN (13:11)
[2023-06-15] MEDS ORDERED: MAG HYDROX/AL HYDROX/SIMETH 30 ML UNIT-DOSE CUP PO PRN (13:11)
[2023-06-15] MEDS ORDERED: ONDANSETRON *ODT* 4 MG TABLET SL PRN (13:11)
[2023-06-15] MEDS ORDERED: NICOTINE POLACRILEX 2 MG GUM BUC PRN (13:17)
[2023-06-15] MEDS ORDERED: ALBUTEROL SO4 HFA INHALER IH PRN (13:20)
[2023-06-15] MEDS: THIAMINE HCL 100 MG TABLET (FP) PO SCH (22:27)
[2023-06-15] MEDS: MELATONIN 5 MG TABLETS PO SCH (22:27)
[2023-06-16] MEDS ORDERED: chlordiazePOXIDE HCL 25 MG CAPSULE PO PRN (09:11)
[2023-06-16] MEDS ORDERED: ALBUTEROL SO4 HFA INHALER IH PRN (09:16)
[2023-06-16 09:29] LABS: HEMATOCRIT 36.2 % (35.4-49); HEMOGLOBIN 12.4 GM/dL (11.7-16.9); MCHC 34.1 g/dl (32.0-35.9); MEAN CELL VOLUME 90.8 fl (80-96); MEAN PLT VOLUME 9.2 fl (7.5-11.1); PLATELET COUNT 240 10^3/uL (134-434); RBC 3.99 M/mm3 (4.00-5.60); RDW 15.6 % (11.9-15.9); WHITE BLOOD COUNT 6.7 K/mm3 (4.0-10.0)
[2023-06-16] MEDS: chlordiazePOXIDE HCL 25 MG CAPSULE PO SCH ×3 (10:17→22:54)
[2023-06-16] MEDS: PRENATAL VITAMINS W/ FOLIC ACID TABLET (FP) PO SCH (10:17)
[2023-06-16] MEDS: NICOTINE 14 MG/24 HOURS TOPICAL PATCH TD SCH (10:17)
[2023-06-16] MEDS: LISINOPRIL 10 MG TABLET PO SCH ×2 (10:17→22:51)
[2023-06-16 10:26] LABS: BLOOD UREA NITROGEN 30.1 mg/dL (7-18)
[2023-06-16 10:54] LABS: CALCIUM 8.6 mg/dL (8.5-10.1); CREATININE 1.4 mg/dL (0.55-1.3)
[2023-06-16 10:55] LABS: ALBUMIN 2.9 g/dl (3.4-5.0)
[2023-06-16 10:59] LABS: BILIRUBIN,TOTAL 0.6 mg/dL (0.2-1); TOT PROT 6.3 g/dl (6.4-8.2)
[2023-06-16 11:36] LABS: POTASSIUM 4.5 mmol/L (3.5-5.1)
[2023-06-16] MEDS: IBUPROFEN 600 MG TABLET (FP) PO PRN (17:16)
[2023-06-16] MEDS: MELATONIN 5 MG TABLETS PO SCH (22:54)
[2023-06-16] MEDS: THIAMINE HCL 100 MG TABLET (FP) PO SCH (22:54)
[2023-06-17] MEDS: chlordiazePOXIDE HCL 25 MG CAPSULE PO SCH ×4 (05:43→22:26)
[2023-06-17] MEDS: IBUPROFEN 600 MG TABLET (FP) PO PRN (05:44)
[2023-06-17] MEDS: PRENATAL VITAMINS W/ FOLIC ACID TABLET (FP) PO SCH (10:58)
[2023-06-17] MEDS: NICOTINE 14 MG/24 HOURS TOPICAL PATCH TD SCH (10:58)
[2023-06-17] MEDS: LISINOPRIL 10 MG TABLET PO SCH ×2 (11:00→22:25)
[2023-06-17] MEDS: THIAMINE HCL 100 MG TABLET (FP) PO SCH (22:25)
[2023-06-17] MEDS: MELATONIN 5 MG TABLETS PO SCH (22:26)
[2023-06-18] MEDS: chlordiazePOXIDE HCL 25 MG CAPSULE PO SCH ×4 (05:55→22:27)
[2023-06-18] MEDS: PRENATAL VITAMINS W/ FOLIC ACID TABLET (FP) PO SCH (10:32)
[2023-06-18] MEDS: LISINOPRIL 10 MG TABLET PO SCH ×2 (10:32→22:27)
[2023-06-18] MEDS: NICOTINE 14 MG/24 HOURS TOPICAL PATCH TD SCH (10:32)
[2023-06-18 12:10] LABS: POTASSIUM 4.3 mmol/L (3.5-5.1)
[2023-06-18 12:12] LABS: CALCIUM 8.3 mg/dL (8.5-10.1)
[2023-06-18 12:16] LABS: CREATININE 1.2 mg/dL (0.55-1.3)
[2023-06-18] MEDS: THIAMINE HCL 100 MG TABLET (FP) PO SCH (22:27)
[2023-06-18] MEDS: MELATONIN 5 MG TABLETS PO SCH (22:27)
[2023-06-19] MEDS ORDERED: chlordiazePOXIDE HCL 10 MG CAPSULE PO PRN
[2023-06-19] MEDS: chlordiazePOXIDE HCL 10 MG CAPSULE PO SCH ×4 (05:46→22:35)
[2023-06-19] MEDS: PRENATAL VITAMINS W/ FOLIC ACID TABLET (FP) PO SCH (10:02)
[2023-06-19] MEDS: NICOTINE 14 MG/24 HOURS TOPICAL PATCH TD SCH (10:02)
[2023-06-19] MEDS: LISINOPRIL 10 MG TABLET PO SCH ×2 (10:02→22:35)
[2023-06-19] MEDS: MELATONIN 5 MG TABLETS PO SCH (22:35)
[2023-06-19] MEDS: THIAMINE HCL 100 MG TABLET (FP) PO SCH (22:35)
[2023-06-20] MEDS: chlordiazePOXIDE HCL 10 MG CAPSULE PO SCH ×2 (05:57→17:17)
[2023-06-20] MEDS: PRENATAL VITAMINS W/ FOLIC ACID TABLET (FP) PO SCH (10:57)
[2023-06-20] MEDS: NICOTINE 14 MG/24 HOURS TOPICAL PATCH TD SCH (10:57)
[2023-06-20] MEDS: LISINOPRIL 10 MG TABLET PO SCH ×2 (10:57→22:23)
[2023-06-20] MEDS: MELATONIN 5 MG TABLETS PO SCH (22:23)
[2023-06-20] MEDS: THIAMINE HCL 100 MG TABLET (FP) PO SCH (22:23)
[2023-06-21] MEDS ORDERED: chlordiazePOXIDE HCL 10 MG CAPSULE PO ONE (05:00)
[2023-06-21] MEDS: LISINOPRIL 10 MG TABLET PO SCH (09:56)
[2023-06-21] MEDS: NICOTINE 14 MG/24 HOURS TOPICAL PATCH TD SCH (09:56)
[2023-06-21] MEDS: PRENATAL VITAMINS W/ FOLIC ACID TABLET (FP) PO SCH (09:56)
[2023-06-21 17:22] VITALS: BP 144/77; PULSE 74; RESP 18; TEMP 98.7
== END 2023-06-21 18:02 | disposition other institution (70) | DRG 897 ==
LOC: YASAS 11:50 → Y6N 13:33
PROVIDERS: ADMIT Allergy & Immunology; ATTEND Surgery
PROC: HZ2ZZZZ Detoxification Services for Substance Abuse Treatment (ICD-10-PCS; principal; 2023-06-15)
DX: F10.230 Alcohol dependence with withdrawal, uncomplicated (principal); F14.20 Cocaine dependence, uncomplicated; F17.210 Nicotine dependence, cigarettes, uncomplicated; E78.5 Hyperlipidemia, unspecified; I10 Essential (primary) hypertension; J45.909 Unspecified asthma, uncomplicated; Z85.46 Personal history of malignant neoplasm of prostate; Z99.89 Dependence on other enabling machines and devices; Z88.0 Allergy status to penicillin
CPT/HCPCS: 36415; 71046-TC-FY; 80048; 80053; 82947; 83036; 85027; 86593; 86780; 87635; 93005; 93010; Q0162

== ENCOUNTER 2023-06-21 18:13 | Inpatient (IN) | payer OTHER ==
[2023-06-21] MEDS ORDERED: LOPERAMIDE HCL 2 MG CAPSULE PO PRN (18:44)
[2023-06-21] MEDS ORDERED: POLYETHYLENE GLYCOL (HEALTHYLAX) 3350 17 GM PACKET PO PRN (18:44)
[2023-06-21] MEDS ORDERED: BENZONATATE 200 MG CAPSULE PO PRN (18:44)
[2023-06-21] MEDS ORDERED: NICOTINE POLACRILEX 2 MG GUM BUC PRN (18:44)
[2023-06-21] MEDS ORDERED: MAGNESIUM HYDROX 2400MG/30ML ORAL SUSPENSION 30 ML CUP PO PRN (18:44)
[2023-06-21] MEDS ORDERED: MAG HYDROX/AL HYDROX/SIMETH 30 ML UNIT-DOSE CUP PO PRN (18:44)
[2023-06-21] MEDS ORDERED: guaiFENesin 600 MG TABLET.ER (FP) PO PRN (18:44)
[2023-06-21] MEDS ORDERED: P-EPHED 60MG/TRIPROLIDI 2.5MG TABLET PO PRN (18:44)
[2023-06-21] MEDS ORDERED: BENZOCAINE/MENTHOL (CHLORASEPTIC ) LOZENGE MM PRN (18:44)
[2023-06-21] MEDS ORDERED: ALBUTEROL SO4 HFA INHALER IH PRN (18:45)
[2023-06-21] MEDS: MELATONIN 5 MG TABLETS PO SCH (21:34)
[2023-06-21] MEDS: LISINOPRIL 10 MG TABLET PO SCH (21:35)
[2023-06-21] MEDS: IBUPROFEN 600 MG TABLET (FP) PO PRN (21:35)
[2023-06-21] MEDS: THIAMINE HCL 100 MG TABLET (FP) PO SCH (21:35)
[2023-06-22] MEDS: PRENATAL VITAMINS W/ FOLIC ACID TABLET (FP) PO SCH (10:09)
[2023-06-22] MEDS: LISINOPRIL 10 MG TABLET PO SCH ×2 (10:09→21:28)
[2023-06-22] MEDS: THIAMINE HCL 100 MG TABLET (FP) PO SCH (21:27)
[2023-06-22] MEDS: MELATONIN 5 MG TABLETS PO SCH (21:27)
[2023-06-22] MEDS: IBUPROFEN 600 MG TABLET (FP) PO PRN (21:29)
[2023-06-23] MEDS: LISINOPRIL 10 MG TABLET PO SCH ×2 (09:55→21:43)
[2023-06-23] MEDS: PRENATAL VITAMINS W/ FOLIC ACID TABLET (FP) PO SCH (09:55)
[2023-06-23] MEDS: IBUPROFEN 600 MG TABLET (FP) PO PRN (09:57)
[2023-06-23] MEDS: MELATONIN 5 MG TABLETS PO SCH (21:42)
[2023-06-23] MEDS: THIAMINE HCL 100 MG TABLET (FP) PO SCH (21:43)
[2023-06-23] MEDS: IBUPROFEN 400 MG TABLET (FP) PO PRN (21:44)
[2023-06-24] MEDS: PRENATAL VITAMINS W/ FOLIC ACID TABLET (FP) PO SCH (09:44)
[2023-06-24] MEDS: LISINOPRIL 10 MG TABLET PO SCH ×2 (09:44→21:16)
[2023-06-24] MEDS: IBUPROFEN 600 MG TABLET (FP) PO PRN (09:45)
[2023-06-24] MEDS: LIDOCAINE 5% TOPICAL PATCH TP SCH (12:33)
[2023-06-24] MEDS: METHYL SALICYLATE/MENTHOL OINT 30 GM TUBE TP SCH (12:33)
[2023-06-24] MEDS: BACLOFEN 10 MG TABLET (FP) PO SCH ×2 (13:02→21:16)
[2023-06-24] MEDS: MELATONIN 5 MG TABLETS PO SCH (21:15)
[2023-06-24] MEDS: THIAMINE HCL 100 MG TABLET (FP) PO SCH (21:15)
[2023-06-24] MEDS: LIDOCAINE PATCH REMOVAL MC SCH (21:16)
[2023-06-24] MEDS: TOPIRAMATE 25 MG TABLET PO SCH (21:37)
[2023-06-25] MEDS: BACLOFEN 10 MG TABLET (FP) PO SCH ×3 (06:47→23:13)
[2023-06-25] MEDS: PRENATAL VITAMINS W/ FOLIC ACID TABLET (FP) PO SCH (09:53)
[2023-06-25] MEDS: LISINOPRIL 10 MG TABLET PO SCH ×2 (09:53→23:13)
[2023-06-25] MEDS: LIDOCAINE 5% TOPICAL PATCH TP SCH (09:54)
[2023-06-25] MEDS: METHYL SALICYLATE/MENTHOL OINT 30 GM TUBE TP SCH (09:54)
[2023-06-25] MEDS: TOPIRAMATE 25 MG TABLET PO SCH ×2 (09:59→23:14)
[2023-06-25 12:22] LABS: INR 0.87 (0.83-1.09); PROTHROMBIN TIME (PATIENT) 10.1 SEC (9.7-13.0)
[2023-06-25] MEDS: LIDOCAINE PATCH REMOVAL MC SCH (23:12)
[2023-06-25] MEDS: MELATONIN 5 MG TABLETS PO SCH (23:13)
[2023-06-25] MEDS: THIAMINE HCL 100 MG TABLET (FP) PO SCH (23:14)
[2023-06-26] MEDS: BACLOFEN 10 MG TABLET (FP) PO SCH ×3 (07:00→21:48)
[2023-06-26] MEDS: ACETAMINOPHEN 325 MG TABLET (FP) PO PRN (09:05)
[2023-06-26] MEDS: LIDOCAINE 5% TOPICAL PATCH TP SCH (10:11)
[2023-06-26] MEDS: LISINOPRIL 10 MG TABLET PO SCH ×2 (10:11→21:48)
[2023-06-26] MEDS: METHYL SALICYLATE/MENTHOL OINT 30 GM TUBE TP SCH (10:11)
[2023-06-26] MEDS: PRENATAL VITAMINS W/ FOLIC ACID TABLET (FP) PO SCH (10:11)
[2023-06-26] MEDS: TOPIRAMATE 25 MG TABLET PO SCH ×2 (10:12→21:48)
[2023-06-26] MEDS: THIAMINE HCL 100 MG TABLET (FP) PO SCH (21:48)
[2023-06-26] MEDS: MELATONIN 5 MG TABLETS PO SCH (21:49)
[2023-06-26] MEDS: LIDOCAINE PATCH REMOVAL MC SCH (21:50)
[2023-06-27] MEDS: BACLOFEN 10 MG TABLET (FP) PO SCH ×3 (06:53→21:23)
[2023-06-27] MEDS: PRENATAL VITAMINS W/ FOLIC ACID TABLET (FP) PO SCH (09:40)
[2023-06-27] MEDS: LIDOCAINE 5% TOPICAL PATCH TP SCH (09:40)
[2023-06-27] MEDS: LISINOPRIL 10 MG TABLET PO SCH ×2 (09:40→21:33)
[2023-06-27] MEDS: TOPIRAMATE 25 MG TABLET PO SCH ×2 (09:41→21:23)
[2023-06-27] MEDS: METHYL SALICYLATE/MENTHOL OINT 30 GM TUBE TP SCH (09:41)
[2023-06-27] MEDS: CHOLECALCIFEROL (VIT D3) 400 UNIT (10 MCG) TABLET PO SCH (15:08)
[2023-06-27] MEDS: THIAMINE HCL 100 MG TABLET (FP) PO SCH (21:22)
[2023-06-27] MEDS: MELATONIN 5 MG TABLETS PO SCH (21:22)
[2023-06-27] MEDS: LIDOCAINE PATCH REMOVAL MC SCH (21:23)
[2023-06-28] MEDS: BACLOFEN 10 MG TABLET (FP) PO SCH ×3 (06:29→21:41)
[2023-06-28] MEDS: METHYL SALICYLATE/MENTHOL OINT 30 GM TUBE TP SCH (09:51)
[2023-06-28] MEDS: TOPIRAMATE 25 MG TABLET PO SCH ×2 (09:51→21:41)
[2023-06-28] MEDS: LISINOPRIL 10 MG TABLET PO SCH ×2 (09:52→21:40)
[2023-06-28] MEDS: LIDOCAINE 5% TOPICAL PATCH TP SCH (09:52)
[2023-06-28] MEDS: PRENATAL VITAMINS W/ FOLIC ACID TABLET (FP) PO SCH (09:52)
[2023-06-28] MEDS: CHOLECALCIFEROL (VIT D3) 400 UNIT (10 MCG) TABLET PO SCH (09:52)
[2023-06-28] MEDS: MELATONIN 5 MG TABLETS PO SCH (21:41)
[2023-06-28] MEDS: THIAMINE HCL 100 MG TABLET (FP) PO SCH (21:42)
[2023-06-28] MEDS: LIDOCAINE PATCH REMOVAL MC SCH (21:43)
[2023-06-29] MEDS: BACLOFEN 10 MG TABLET (FP) PO SCH ×3 (06:28→21:22)
[2023-06-29] MEDS: TOPIRAMATE 25 MG TABLET PO SCH ×2 (09:58→21:22)
[2023-06-29] MEDS: CHOLECALCIFEROL (VIT D3) 400 UNIT (10 MCG) TABLET PO SCH (09:58)
[2023-06-29] MEDS: PRENATAL VITAMINS W/ FOLIC ACID TABLET (FP) PO SCH (09:58)
[2023-06-29] MEDS: LIDOCAINE 5% TOPICAL PATCH TP SCH (09:58)
[2023-06-29] MEDS: LISINOPRIL 10 MG TABLET PO SCH ×2 (09:58→21:22)
[2023-06-29] MEDS: METHYL SALICYLATE/MENTHOL OINT 30 GM TUBE TP SCH (09:59)
[2023-06-29] MEDS: MELATONIN 5 MG TABLETS PO SCH (21:22)
[2023-06-29] MEDS: THIAMINE HCL 100 MG TABLET (FP) PO SCH (21:22)
[2023-06-29] MEDS: LIDOCAINE PATCH REMOVAL MC SCH (21:23)
[2023-06-30] MEDS: BACLOFEN 10 MG TABLET (FP) PO SCH ×3 (06:36→21:35)
[2023-06-30] MEDS: PRENATAL VITAMINS W/ FOLIC ACID TABLET (FP) PO SCH (10:15)
[2023-06-30] MEDS: LIDOCAINE 5% TOPICAL PATCH TP SCH (10:15)
[2023-06-30] MEDS: METHYL SALICYLATE/MENTHOL OINT 30 GM TUBE TP SCH (10:15)
[2023-06-30] MEDS: CHOLECALCIFEROL (VIT D3) 400 UNIT (10 MCG) TABLET PO SCH (10:15)
[2023-06-30] MEDS: TOPIRAMATE 25 MG TABLET PO SCH ×2 (10:16→21:34)
[2023-06-30] MEDS: LISINOPRIL 10 MG TABLET PO SCH ×2 (10:16→21:34)
[2023-06-30] MEDS: LIDOCAINE PATCH REMOVAL MC SCH (21:34)
[2023-06-30] MEDS: THIAMINE HCL 100 MG TABLET (FP) PO SCH (21:34)
[2023-06-30] MEDS: MELATONIN 5 MG TABLETS PO SCH (21:34)
[2023-07-01] MEDS: BACLOFEN 10 MG TABLET (FP) PO SCH ×3 (06:46→21:43)
[2023-07-01] MEDS: PRENATAL VITAMINS W/ FOLIC ACID TABLET (FP) PO SCH (09:22)
[2023-07-01] MEDS: LISINOPRIL 10 MG TABLET PO SCH ×2 (09:22→21:43)
[2023-07-01] MEDS: LIDOCAINE 4% PATCH TP SCH (09:22)
[2023-07-01] MEDS: METHYL SALICYLATE/MENTHOL OINT 30 GM TUBE TP SCH (09:24)
[2023-07-01] MEDS: TOPIRAMATE 25 MG TABLET PO SCH ×2 (09:24→21:44)
[2023-07-01] MEDS: CHOLECALCIFEROL (VIT D3) 400 UNIT (10 MCG) TABLET PO SCH (09:25)
[2023-07-01] MEDS: THIAMINE HCL 100 MG TABLET (FP) PO SCH (21:42)
[2023-07-01] MEDS: LIDOCAINE PATCH REMOVAL MC SCH (21:43)
[2023-07-01] MEDS: MELATONIN 5 MG TABLETS PO SCH (21:44)
[2023-07-02] MEDS: BACLOFEN 10 MG TABLET (FP) PO SCH ×3 (06:36→21:06)
[2023-07-02] MEDS: TOPIRAMATE 25 MG TABLET PO SCH ×2 (09:35→21:06)
[2023-07-02] MEDS: LIDOCAINE 4% PATCH TP SCH (09:35)
[2023-07-02] MEDS: METHYL SALICYLATE/MENTHOL OINT 30 GM TUBE TP SCH (09:35)
[2023-07-02] MEDS: CHOLECALCIFEROL (VIT D3) 400 UNIT (10 MCG) TABLET PO SCH (09:35)
[2023-07-02] MEDS: PRENATAL VITAMINS W/ FOLIC ACID TABLET (FP) PO SCH (09:35)
[2023-07-02] MEDS: LISINOPRIL 10 MG TABLET PO SCH ×2 (09:36→21:06)
[2023-07-02] MEDS: LIDOCAINE PATCH REMOVAL MC SCH (21:06)
[2023-07-02] MEDS: THIAMINE HCL 100 MG TABLET (FP) PO SCH (21:06)
[2023-07-02] MEDS: MELATONIN 5 MG TABLETS PO SCH (21:06)
[2023-07-03] MEDS: BACLOFEN 10 MG TABLET (FP) PO SCH ×3 (06:30→21:27)
[2023-07-03] MEDS: TOPIRAMATE 25 MG TABLET PO SCH ×2 (09:00→21:27)
[2023-07-03] MEDS: LIDOCAINE 4% PATCH TP SCH (09:00)
[2023-07-03] MEDS: PRENATAL VITAMINS W/ FOLIC ACID TABLET (FP) PO SCH (09:00)
[2023-07-03] MEDS: LISINOPRIL 10 MG TABLET PO SCH ×2 (09:00→21:27)
[2023-07-03] MEDS: METHYL SALICYLATE/MENTHOL OINT 30 GM TUBE TP SCH (09:00)
[2023-07-03] MEDS: CHOLECALCIFEROL (VIT D3) 400 UNIT (10 MCG) TABLET PO SCH (09:00)
[2023-07-03] MEDS: THIAMINE HCL 100 MG TABLET (FP) PO SCH (21:26)
[2023-07-03] MEDS: MELATONIN 5 MG TABLETS PO SCH (21:26)
[2023-07-03] MEDS: LIDOCAINE PATCH REMOVAL MC SCH (21:27)
[2023-07-04] MEDS: BACLOFEN 10 MG TABLET (FP) PO SCH ×3 (06:27→21:28)
[2023-07-04] MEDS: LISINOPRIL 10 MG TABLET PO SCH ×2 (09:34→21:28)
[2023-07-04] MEDS: CHOLECALCIFEROL (VIT D3) 400 UNIT (10 MCG) TABLET PO SCH (09:34)
[2023-07-04] MEDS: METHYL SALICYLATE/MENTHOL OINT 30 GM TUBE TP SCH (09:34)
[2023-07-04] MEDS: PRENATAL VITAMINS W/ FOLIC ACID TABLET (FP) PO SCH (09:34)
[2023-07-04] MEDS: TOPIRAMATE 25 MG TABLET PO SCH ×2 (09:35→21:28)
[2023-07-04] MEDS: LIDOCAINE 4% PATCH TP SCH (09:35)
[2023-07-04] MEDS: MELATONIN 5 MG TABLETS PO SCH (21:28)
[2023-07-04] MEDS: THIAMINE HCL 100 MG TABLET (FP) PO SCH (21:28)
[2023-07-04] MEDS: LIDOCAINE PATCH REMOVAL MC SCH (21:28)
[2023-07-05] MEDS: BACLOFEN 10 MG TABLET (FP) PO SCH ×3 (06:09→21:12)
[2023-07-05] MEDS: METHYL SALICYLATE/MENTHOL OINT 30 GM TUBE TP SCH (09:53)
[2023-07-05] MEDS: LIDOCAINE 4% PATCH TP SCH (09:53)
[2023-07-05] MEDS: PRENATAL VITAMINS W/ FOLIC ACID TABLET (FP) PO SCH (09:54)
[2023-07-05] MEDS: CHOLECALCIFEROL (VIT D3) 400 UNIT (10 MCG) TABLET PO SCH (10:11)
[2023-07-05] MEDS: LISINOPRIL 10 MG TABLET PO SCH ×2 (10:11→21:12)
[2023-07-05] MEDS: TOPIRAMATE 25 MG TABLET PO SCH ×2 (10:12→21:12)
[2023-07-05] MEDS: LIDOCAINE PATCH REMOVAL MC SCH (21:11)
[2023-07-05] MEDS: MELATONIN 5 MG TABLETS PO SCH (21:12)
[2023-07-05] MEDS: THIAMINE HCL 100 MG TABLET (FP) PO SCH (21:12)
[2023-07-06] MEDS: BACLOFEN 10 MG TABLET (FP) PO SCH ×3 (06:20→21:39)
[2023-07-06] MEDS: PRENATAL VITAMINS W/ FOLIC ACID TABLET (FP) PO SCH (10:11)
[2023-07-06] MEDS: CHOLECALCIFEROL (VIT D3) 400 UNIT (10 MCG) TABLET PO SCH (10:11)
[2023-07-06] MEDS: LISINOPRIL 10 MG TABLET PO SCH ×2 (10:11→21:39)
[2023-07-06] MEDS: TOPIRAMATE 25 MG TABLET PO SCH ×2 (10:11→21:40)
[2023-07-06] MEDS: LIDOCAINE 4% PATCH TP SCH (10:12)
[2023-07-06] MEDS: METHYL SALICYLATE/MENTHOL OINT 30 GM TUBE TP SCH (10:13)
[2023-07-06] MEDS ORDERED: METHYL SALICYLATE/MENTHOL OINT 30 GM TUBE TP PRN (15:05)
[2023-07-06] MEDS: MELATONIN 5 MG TABLETS PO SCH (21:39)
[2023-07-06] MEDS: LIDOCAINE PATCH REMOVAL MC SCH (21:39)
[2023-07-06] MEDS: THIAMINE HCL 100 MG TABLET (FP) PO SCH (21:39)
[2023-07-07] MEDS: BACLOFEN 10 MG TABLET (FP) PO SCH ×3 (06:33→21:14)
[2023-07-07] MEDS: LISINOPRIL 10 MG TABLET PO SCH ×2 (09:46→21:14)
[2023-07-07] MEDS: PRENATAL VITAMINS W/ FOLIC ACID TABLET (FP) PO SCH (09:46)
[2023-07-07] MEDS: CHOLECALCIFEROL (VIT D3) 400 UNIT (10 MCG) TABLET PO SCH (09:46)
[2023-07-07] MEDS: TOPIRAMATE 25 MG TABLET PO SCH ×2 (09:46→21:14)
[2023-07-07] MEDS: LIDOCAINE 4% PATCH TP SCH (09:47)
[2023-07-07 17:46] LABS: HIV INTERPRETATION NEGATIVE (NEGATIVE)
[2023-07-07] MEDS: LIDOCAINE PATCH REMOVAL MC SCH (21:14)
[2023-07-07] MEDS: THIAMINE HCL 100 MG TABLET (FP) PO SCH (21:15)
[2023-07-07] MEDS: MELATONIN 5 MG TABLETS PO SCH (21:15)
[2023-07-08] MEDS: BACLOFEN 10 MG TABLET (FP) PO SCH ×3 (06:17→21:17)
[2023-07-08] MEDS: COLLOIDAL OATMEAL 1 BAR EACH TP PRN (08:57)
[2023-07-08] MEDS: LISINOPRIL 10 MG TABLET PO SCH ×2 (10:37→21:17)
[2023-07-08] MEDS: LIDOCAINE 4% PATCH TP SCH (10:37)
[2023-07-08] MEDS: CHOLECALCIFEROL (VIT D3) 400 UNIT (10 MCG) TABLET PO SCH (10:37)
[2023-07-08] MEDS: PRENATAL VITAMINS W/ FOLIC ACID TABLET (FP) PO SCH (10:37)
[2023-07-08] MEDS: TOPIRAMATE 25 MG TABLET PO SCH ×2 (10:38→21:17)
[2023-07-08] MEDS: MELATONIN 5 MG TABLETS PO SCH (21:17)
[2023-07-08] MEDS: THIAMINE HCL 100 MG TABLET (FP) PO SCH (21:17)
[2023-07-08] MEDS: LIDOCAINE PATCH REMOVAL MC SCH (21:19)
[2023-07-09] MEDS: BACLOFEN 10 MG TABLET (FP) PO SCH ×3 (06:43→21:08)
[2023-07-09] MEDS: LIDOCAINE 4% PATCH TP SCH (09:33)
[2023-07-09] MEDS: LISINOPRIL 10 MG TABLET PO SCH ×2 (09:33→21:08)
[2023-07-09] MEDS: PRENATAL VITAMINS W/ FOLIC ACID TABLET (FP) PO SCH (09:33)
[2023-07-09] MEDS: TOPIRAMATE 25 MG TABLET PO SCH ×2 (09:34→21:08)
[2023-07-09] MEDS: CHOLECALCIFEROL (VIT D3) 400 UNIT (10 MCG) TABLET PO SCH (10:27)
[2023-07-09] MEDS: LIDOCAINE PATCH REMOVAL MC SCH (21:07)
[2023-07-09] MEDS: MELATONIN 5 MG TABLETS PO SCH (21:08)
[2023-07-09] MEDS: THIAMINE HCL 100 MG TABLET (FP) PO SCH (21:08)
[2023-07-09] MEDS: IBUPROFEN 400 MG TABLET (FP) PO PRN (21:09)
[2023-07-10] MEDS: BACLOFEN 10 MG TABLET (FP) PO SCH ×3 (06:13→21:10)
[2023-07-10] MEDS: COLLOIDAL OATMEAL 1 BAR EACH TP PRN (06:48)
[2023-07-10] MEDS: TOPIRAMATE 25 MG TABLET PO SCH ×2 (09:56→21:10)
[2023-07-10] MEDS: LISINOPRIL 10 MG TABLET PO SCH ×2 (09:56→21:11)
[2023-07-10] MEDS: PRENATAL VITAMINS W/ FOLIC ACID TABLET (FP) PO SCH (09:57)
[2023-07-10] MEDS: CHOLECALCIFEROL (VIT D3) 400 UNIT (10 MCG) TABLET PO SCH (09:57)
[2023-07-10] MEDS: LIDOCAINE 4% PATCH TP SCH (09:57)
[2023-07-10] MEDS: THIAMINE HCL 100 MG TABLET (FP) PO SCH (21:10)
[2023-07-10] MEDS: LIDOCAINE PATCH REMOVAL MC SCH (21:11)
[2023-07-10] MEDS: ACETAMINOPHEN 325 MG TABLET (FP) PO PRN (21:11)
[2023-07-10] MEDS: MELATONIN 5 MG TABLETS PO SCH (21:11)
[2023-07-11] MEDS: BACLOFEN 10 MG TABLET (FP) PO SCH ×3 (06:39→21:16)
[2023-07-11] MEDS: LIDOCAINE 4% PATCH TP SCH (10:06)
[2023-07-11] MEDS: PRENATAL VITAMINS W/ FOLIC ACID TABLET (FP) PO SCH (10:06)
[2023-07-11] MEDS: LISINOPRIL 10 MG TABLET PO SCH ×2 (10:07→21:16)
[2023-07-11] MEDS: TOPIRAMATE 25 MG TABLET PO SCH ×2 (10:07→21:16)
[2023-07-11] MEDS: CHOLECALCIFEROL (VIT D3) 400 UNIT (10 MCG) TABLET PO SCH (10:07)
[2023-07-11] MEDS: MELATONIN 5 MG TABLETS PO SCH (21:16)
[2023-07-11] MEDS: LIDOCAINE PATCH REMOVAL MC SCH (21:16)
[2023-07-11] MEDS: THIAMINE HCL 100 MG TABLET (FP) PO SCH (21:16)
[2023-07-12] MEDS: BACLOFEN 10 MG TABLET (FP) PO SCH ×3 (06:32→21:24)
[2023-07-12] MEDS: LISINOPRIL 10 MG TABLET PO SCH ×2 (09:39→21:24)
[2023-07-12] MEDS: TOPIRAMATE 25 MG TABLET PO SCH ×2 (09:39→21:24)
[2023-07-12] MEDS: LIDOCAINE 4% PATCH TP SCH (09:39)
[2023-07-12] MEDS: CHOLECALCIFEROL (VIT D3) 400 UNIT (10 MCG) TABLET PO SCH (09:39)
[2023-07-12] MEDS: PRENATAL VITAMINS W/ FOLIC ACID TABLET (FP) PO SCH (09:40)
[2023-07-12] MEDS: MELATONIN 5 MG TABLETS PO SCH (21:24)
[2023-07-12] MEDS: THIAMINE HCL 100 MG TABLET (FP) PO SCH (21:24)
[2023-07-12] MEDS: ACETAMINOPHEN 325 MG TABLET (FP) PO PRN (21:25)
[2023-07-12] MEDS: LIDOCAINE PATCH REMOVAL MC SCH (22:33)
[2023-07-13] MEDS: BACLOFEN 10 MG TABLET (FP) PO SCH ×3 (06:13→21:25)
[2023-07-13] MEDS: LIDOCAINE 4% PATCH TP SCH (09:55)
[2023-07-13] MEDS: CHOLECALCIFEROL (VIT D3) 400 UNIT (10 MCG) TABLET PO SCH (09:56)
[2023-07-13] MEDS: PRENATAL VITAMINS W/ FOLIC ACID TABLET (FP) PO SCH (09:56)
[2023-07-13] MEDS: TOPIRAMATE 25 MG TABLET PO SCH ×2 (09:56→21:25)
[2023-07-13] MEDS: LISINOPRIL 10 MG TABLET PO SCH ×2 (09:56→21:25)
[2023-07-13] MEDS: THIAMINE HCL 100 MG TABLET (FP) PO SCH (21:25)
[2023-07-13] MEDS: MELATONIN 5 MG TABLETS PO SCH (21:25)
[2023-07-13] MEDS: LIDOCAINE PATCH REMOVAL MC SCH (21:26)
[2023-07-14] MEDS: BACLOFEN 10 MG TABLET (FP) PO SCH ×3 (06:44→21:27)
[2023-07-14] MEDS: IBUPROFEN 600 MG TABLET (FP) PO PRN (09:05)
[2023-07-14] MEDS: PRENATAL VITAMINS W/ FOLIC ACID TABLET (FP) PO SCH (09:06)
[2023-07-14] MEDS: LISINOPRIL 10 MG TABLET PO SCH ×2 (09:06→21:27)
[2023-07-14] MEDS: CHOLECALCIFEROL (VIT D3) 400 UNIT (10 MCG) TABLET PO SCH (09:06)
[2023-07-14] MEDS: TOPIRAMATE 25 MG TABLET PO SCH ×2 (09:07→21:27)
[2023-07-14] MEDS: LIDOCAINE 4% PATCH TP SCH (09:07)
[2023-07-14] MEDS: MELATONIN 5 MG TABLETS PO SCH (21:27)
[2023-07-14] MEDS: THIAMINE HCL 100 MG TABLET (FP) PO SCH (21:27)
[2023-07-14] MEDS: LIDOCAINE PATCH REMOVAL MC SCH (21:27)
[2023-07-15] MEDS: BACLOFEN 10 MG TABLET (FP) PO SCH ×3 (06:24→21:42)
[2023-07-15] MEDS: LIDOCAINE 4% PATCH TP SCH (09:48)
[2023-07-15] MEDS: LISINOPRIL 10 MG TABLET PO SCH ×2 (09:49→21:42)
[2023-07-15] MEDS: PRENATAL VITAMINS W/ FOLIC ACID TABLET (FP) PO SCH (09:49)
[2023-07-15] MEDS: CHOLECALCIFEROL (VIT D3) 400 UNIT (10 MCG) TABLET PO SCH (09:50)
[2023-07-15] MEDS: TOPIRAMATE 25 MG TABLET PO SCH ×2 (09:50→21:42)
[2023-07-15] MEDS: THIAMINE HCL 100 MG TABLET (FP) PO SCH (21:42)
[2023-07-15] MEDS: MELATONIN 5 MG TABLETS PO SCH (21:42)
[2023-07-15] MEDS: LIDOCAINE PATCH REMOVAL MC SCH (21:43)
[2023-07-16] MEDS: BACLOFEN 10 MG TABLET (FP) PO SCH ×3 (06:21→21:28)
[2023-07-16] MEDS: LIDOCAINE 4% PATCH TP SCH (09:57)
[2023-07-16] MEDS: TOPIRAMATE 25 MG TABLET PO SCH ×2 (09:58→21:28)
[2023-07-16] MEDS: PRENATAL VITAMINS W/ FOLIC ACID TABLET (FP) PO SCH (09:58)
[2023-07-16] MEDS: LISINOPRIL 10 MG TABLET PO SCH ×2 (09:58→21:28)
[2023-07-16] MEDS: CHOLECALCIFEROL (VIT D3) 400 UNIT (10 MCG) TABLET PO SCH (09:59)
[2023-07-16] MEDS: LIDOCAINE PATCH REMOVAL MC SCH (21:28)
[2023-07-16] MEDS: THIAMINE HCL 100 MG TABLET (FP) PO SCH (21:28)
[2023-07-16] MEDS: MELATONIN 5 MG TABLETS PO SCH (21:28)
[2023-07-17] MEDS: BACLOFEN 10 MG TABLET (FP) PO SCH ×3 (06:33→21:05)
[2023-07-17] MEDS: PRENATAL VITAMINS W/ FOLIC ACID TABLET (FP) PO SCH (10:05)
[2023-07-17] MEDS: LIDOCAINE 4% PATCH TP SCH (10:05)
[2023-07-17] MEDS: TOPIRAMATE 25 MG TABLET PO SCH ×2 (10:05→21:05)
[2023-07-17] MEDS: CHOLECALCIFEROL (VIT D3) 400 UNIT (10 MCG) TABLET PO SCH (10:06)
[2023-07-17] MEDS: LISINOPRIL 10 MG TABLET PO SCH ×2 (10:06→21:05)
[2023-07-17] MEDS: THIAMINE HCL 100 MG TABLET (FP) PO SCH (21:05)
[2023-07-17] MEDS: MELATONIN 5 MG TABLETS PO SCH (21:05)
[2023-07-17] MEDS: LIDOCAINE PATCH REMOVAL MC SCH (21:06)
[2023-07-18] MEDS: BACLOFEN 10 MG TABLET (FP) PO SCH ×3 (07:23→21:26)
[2023-07-18] MEDS: TOPIRAMATE 25 MG TABLET PO SCH ×2 (10:03→21:26)
[2023-07-18] MEDS: LIDOCAINE 4% PATCH TP SCH (10:03)
[2023-07-18] MEDS: CHOLECALCIFEROL (VIT D3) 400 UNIT (10 MCG) TABLET PO SCH (10:04)
[2023-07-18] MEDS: LISINOPRIL 10 MG TABLET PO SCH ×2 (10:04→21:26)
[2023-07-18] MEDS: PRENATAL VITAMINS W/ FOLIC ACID TABLET (FP) PO SCH (10:04)
[2023-07-18] MEDS: THIAMINE HCL 100 MG TABLET (FP) PO SCH (21:26)
[2023-07-18] MEDS: MELATONIN 5 MG TABLETS PO SCH (21:26)
[2023-07-18] MEDS: LIDOCAINE PATCH REMOVAL MC SCH (21:26)
[2023-07-19] MEDS: BACLOFEN 10 MG TABLET (FP) PO SCH (06:14)
[2023-07-19 06:46] VITALS: RESP 20; TEMP 97.8
[2023-07-19] MEDS: COLLOIDAL OATMEAL 1 BAR EACH TP PRN (08:59)
[2023-07-19] MEDS: CHOLECALCIFEROL (VIT D3) 400 UNIT (10 MCG) TABLET PO SCH (09:00)
[2023-07-19] MEDS: TOPIRAMATE 25 MG TABLET PO SCH (09:00)
[2023-07-19] MEDS: PRENATAL VITAMINS W/ FOLIC ACID TABLET (FP) PO SCH (09:00)
[2023-07-19] MEDS: LIDOCAINE 4% PATCH TP SCH (09:01)
[2023-07-19] MEDS: LISINOPRIL 10 MG TABLET PO SCH (09:01)
[2023-07-19 09:15] VITALS: BP 108/68; PULSE 67
== END 2023-07-19 09:08 | disposition home or self-care (01) | DRG 895 ==
LOC: YASAS 18:13 → Y3E 18:15
PROVIDERS: ADMIT Allergy & Immunology; ATTEND Psychiatry & Neurology Pain Medicine
PROC: HZ42ZZZ Group Counseling for Substance Abuse Treatment, Cognitive-Behavioral (ICD-10-PCS; principal; 2023-06-21)
DX: F10.20 Alcohol dependence, uncomplicated (principal); F14.20 Cocaine dependence, uncomplicated; F19.282 Other psychoactive substance dependence with psychoactive substance-induced sleep disorder; E72.20 Disorder of urea cycle metabolism, unspecified; F17.210 Nicotine dependence, cigarettes, uncomplicated; F19.24 Other psychoactive substance dependence with psychoactive substance-induced mood disorder; E78.5 Hyperlipidemia, unspecified; I10 Essential (primary) hypertension; J45.20 Mild intermittent asthma, uncomplicated; Z85.46 Personal history of malignant neoplasm of prostate; Z98.1 Arthrodesis status; Z99.89 Dependence on other enabling machines and devices; Z88.0 Allergy status to penicillin
CPT/HCPCS: 36415; 82140; 82652; 83036; 83735; 85610; 87389; 87635; J0475

== ENCOUNTER 2023-12-14 11:51 | Inpatient (IN) | payer OTHER ==
[2023-12-14 12:16] VITALS: BMI 16.7
[2023-12-14] MEDS ORDERED: hydrOXYzine PAMOATE 25 MG CAPSULE (FP) PO PRN (12:54)
[2023-12-14] MEDS ORDERED: ACETAMINOPHEN 325 MG TABLET (FP) PO PRN (12:54)
[2023-12-14] MEDS ORDERED: MAG HYDROX/AL HYDROX/SIMETH 30 ML UNIT-DOSE CUP PO PRN (12:54)
[2023-12-14] MEDS ORDERED: guaiFENesin 600 MG TABLET.ER (FP) PO PRN (12:54)
[2023-12-14] MEDS ORDERED: NALOXONE HCL 0.4 MG/ML VIAL IM PRN (12:54)
[2023-12-14] MEDS ORDERED: BENZONATATE 200 MG CAPSULE PO PRN (12:54)
[2023-12-14] MEDS ORDERED: POLYETHYLENE GLYCOL (HEALTHYLAX) 3350 17 GM PACKET PO PRN (12:54)
[2023-12-14] MEDS ORDERED: IBUPROFEN 400 MG TABLET (FP) PO PRN (12:54)
[2023-12-14] MEDS ORDERED: BENZOCAINE/MENTHOL (CHLORASEPTIC ) LOZENGE MM PRN (12:54)
[2023-12-14] MEDS ORDERED: NALOXONE HCL (KLOXXADO) 8 MG SPRAY NS PRN (12:54)
[2023-12-14] MEDS ORDERED: MAGNESIUM HYDROX 2400MG/30ML ORAL SUSPENSION 30 ML CUP PO PRN (12:54)
[2023-12-14] MEDS ORDERED: LOPERAMIDE HCL 2 MG CAPSULE PO PRN (12:54)
[2023-12-14] MEDS ORDERED: NICOTINE 14 MG/24 HOURS TOPICAL PATCH TD ONE (15:23)
[2023-12-14] MEDS ORDERED: PRENATAL VITAMINS W/ FOLIC ACID TABLET (FP) PO ONE (15:23)
[2023-12-14] MEDS: PRENATAL VITAMINS W/ FOLIC ACID TABLET (FP) PO SCH (15:28)
[2023-12-14] MEDS: NICOTINE 14 MG/24 HOURS TOPICAL PATCH TD SCH (15:28)
[2023-12-14] MEDS ORDERED: ATORVASTATIN CA 40 MG TABLET (FP) ONE (20:27)
[2023-12-14] MEDS: THIAMINE HCL 100 MG TABLET (FP) PO SCH (21:46)
[2023-12-14] MEDS: MELATONIN 5 MG TABLETS PO SCH (21:46)
[2023-12-14] MEDS: ATORVASTATIN CA 80 MG TABLET (FP) PO SCH (21:47)
[2023-12-15] MEDS: LISINOPRIL 20 MG TABLET PO SCH (10:26)
[2023-12-15] MEDS: ASPIRIN COATED 81 MG TABLET.EC PO SCH (10:26)
[2023-12-15 15:02] LABS: HEMATOCRIT 40.2 % (35.4-49); MCH 29.4 pg (25.7-33.7); MCHC 32.3 g/dl (32.0-35.9); MEAN CELL VOLUME 91.1 fl (80-96); MEAN PLT VOLUME 9.2 fl (7.5-11.1); PLATELET COUNT 244 10^3/uL (134-434); RBC 4.41 M/mm3 (4.00-5.60); RDW 15.5 % (11.9-15.9); WHITE BLOOD COUNT 6.1 K/mm3 (4.0-10.0)
[2023-12-15 15:05] LABS: POTASSIUM 4.6 mmol/L (3.5-5.1)
[2023-12-15 15:08] LABS: ALBUMIN 2.9 g/dl (3.4-5.0); CALCIUM 8.6 mg/dL (8.5-10.1)
[2023-12-15 15:09] LABS: BLOOD UREA NITROGEN 29.1 mg/dL (7-18)
[2023-12-15 15:12] LABS: CREATININE 1.2 mg/dL (0.55-1.3)
[2023-12-15 15:13] LABS: BILIRUBIN,TOTAL 0.4 mg/dL (0.2-1); TOT PROT 5.7 g/dl (6.4-8.2)
[2023-12-15 15:41] LABS: SYPHILIS W/ RPR CONF REACTIVE (NONREACTIVE)
[2023-12-15 17:36] LABS: PH,URINE 6.5 (5.0-8.0); URINE APPEARANCE CLEAR; URINE BILIRUBIN NEGATIVE (NEGATIVE); URINE COLOR YELLOW; URINE GLUCOSE (UA) NEGATIVE (NEGATIVE); URINE KETONE NEGATIVE (NEGATIVE); URINE LEUK ESTERASE NEGATIVE (NEGATIVE); URINE NITRITE NEGATIVE (NEGATIVE); URINE PROTEIN NEGATIVE (NEGATIVE); URINE UROBILINOGEN 0.2 mg/dL (0.2-1.0)
[2023-12-15] MEDS: IBUPROFEN 600 MG TABLET (FP) PO PRN (19:24)
[2023-12-15] MEDS ORDERED: ATORVASTATIN CA 40 MG TABLET (FP) ONE (19:40)
[2023-12-16] MEDS ORDERED: ATORVASTATIN CA 40 MG TABLET (FP) ONE (19:47)
[2023-12-17] MEDS ORDERED: ATORVASTATIN CA 40 MG TABLET (FP) ONE (19:32)
[2023-12-18] MEDS ORDERED: ATORVASTATIN CA 20 MG TABLET (FP) ONE (18:43)
[2023-12-19] MEDS ORDERED: ATORVASTATIN CA 40 MG TABLET (FP) ONE (19:54)
[2023-12-20] MEDS ORDERED: ATORVASTATIN CA 40 MG TABLET (FP) ONE (19:52)
[2023-12-21] MEDS ORDERED: ATORVASTATIN CA 40 MG TABLET (FP) ONE (19:21)
[2023-12-22] MEDS: DOXYCYCLINE HYCLATE 100 MG TABLET PO SCH (17:58)
[2023-12-22] MEDS ORDERED: ATORVASTATIN CA 40 MG TABLET (FP) ONE (18:49)
[2023-12-23] MEDS ORDERED: ATORVASTATIN CA 40 MG TABLET (FP) ONE (18:35)
[2023-12-24] MEDS ORDERED: ATORVASTATIN CA 40 MG TABLET (FP) ONE (19:55)
[2023-12-25 06:49] VITALS: TEMP 97.4
[2023-12-25] MEDS ORDERED: ATORVASTATIN CA 40 MG TABLET (FP) ONE (20:19)
[2023-12-26 07:07] VITALS: BP 144/81; PULSE 64; RESP 17
== END 2023-12-26 11:25 | disposition home or self-care (01) | DRG 895 ==
LOC: YASAS 11:51 → Y5N 15:07
PROVIDERS: ADMIT Allergy & Immunology; ATTEND Psychiatry & Neurology Pain Medicine
PROC: HZ42ZZZ Group Counseling for Substance Abuse Treatment, Cognitive-Behavioral (ICD-10-PCS; principal; 2023-12-14)
DX: F10.20 Alcohol dependence, uncomplicated (principal); F14.20 Cocaine dependence, uncomplicated; F17.210 Nicotine dependence, cigarettes, uncomplicated; E78.5 Hyperlipidemia, unspecified; I10 Essential (primary) hypertension; A53.9 Syphilis, unspecified; Z85.46 Personal history of malignant neoplasm of prostate; Z99.89 Dependence on other enabling machines and devices; Z88.0 Allergy status to penicillin
CPT/HCPCS: 36415; 80053; 81003; 82140; 85027; 86593; 86780; 86803; 87811

== ENCOUNTER 2024-05-16 12:46 | Inpatient (IN) | payer OTHER ==
[2024-05-16 13:01] VITALS: BMI 17.0
[2024-05-16] MEDS ORDERED: BENZONATATE 200 MG CAPSULE PO PRN (13:13)
[2024-05-16] MEDS ORDERED: MAGNESIUM HYDROX 2400MG/30ML ORAL SUSPENSION 30 ML CUP PO PRN (13:13)
[2024-05-16] MEDS ORDERED: NICOTINE POLACRILEX 2 MG GUM BUC PRN (13:13)
[2024-05-16] MEDS ORDERED: MAG HYDROX/AL HYDROX/SIMETH 30 ML UNIT-DOSE CUP PO PRN (13:13)
[2024-05-16] MEDS ORDERED: guaiFENesin 600 MG TABLET.ER (FP) PO PRN (13:13)
[2024-05-16] MEDS ORDERED: POLYETHYLENE GLYCOL (HEALTHYLAX) 3350 17 GM PACKET PO PRN (13:13)
[2024-05-16] MEDS ORDERED: IBUPROFEN 400 MG TABLET (FP) PO PRN (13:13)
[2024-05-16] MEDS ORDERED: BENZOCAINE/MENTHOL (CHLORASEPTIC ) LOZENGE MM PRN (13:13)
[2024-05-16] MEDS ORDERED: LOPERAMIDE HCL 2 MG CAPSULE PO PRN (13:13)
[2024-05-16] MEDS ORDERED: NICOTINE POLACRILEX 2 MG LOZENGE BC PRN (13:13)
[2024-05-16] MEDS: amLODIPine BESYLATE 10 MG TABLET (FP) PO ONE (15:23)
[2024-05-16] MEDS: CLINDAMYCIN HCL 150 MG CAPSULE (FP) PO SCH (17:37)
[2024-05-16] MEDS: THIAMINE 100 MG TABLET PO SCH (21:27)
[2024-05-16] MEDS: MELATONIN 5 MG TABLETS PO SCH (21:27)
[2024-05-17] MEDS: PRENATAL VITAMINS W/ FOLIC ACID TABLET (FP) PO SCH (10:07)
[2024-05-17 12:26] LABS: CHLORIDE 106 mmol/L (98-107); HEMOGLOBIN 13.2 GM/dL (11.7-16.9); MCH 31.1 pg (25.7-33.7); MCHC 33.2 g/dl (32.0-35.9); MEAN CELL VOLUME 93.9 fl (80-96); MEAN PLT VOLUME 9.1 fl (7.5-11.1); PLATELET COUNT 261 10^3/uL (134-434); POTASSIUM 4.2 mmol/L (3.5-5.1); RBC 4.25 M/mm3 (4.00-5.60); RDW 14.6 % (11.9-15.9); SODIUM 141 mmol/L (136-145); WHITE BLOOD COUNT 10.1 K/mm3 (4.0-10.0)
[2024-05-17 12:31] LABS: ALBUMIN 2.7 g/dl (3.4-5.0); ANION GAP 4 mmol/L (4-13); BLOOD UREA NITROGEN 30.4 mg/dL (7-18); CALCIUM 8.8 mg/dL (8.5-10.1); CO2 30 mmol/L (21-32); GLUCOSE,RANDOM 161 mg/dL (74-106)
[2024-05-17 12:33] LABS: SGPT/ALT 29 U/L (13-61)
[2024-05-17 12:35] LABS: BILIRUBIN,TOTAL 0.4 mg/dL (0.2-1); CREATININE 1.5 mg/dL (0.55-1.3); SGOT/AST 24 U/L (15-37)
[2024-05-17 12:36] LABS: ALK PHOS 163 U/L (45-117)
[2024-05-17] MEDS: CLINDAMYCIN PHOSPHATE 1% TOPICAL GEL 30 GM TUBE TP SCH (21:16)
[2024-05-18] MEDS: amLODIPine BESYLATE 5 MG TABLET (FP) PO SCH (10:23)
[2024-05-19] MEDS: CHOLECALCIFEROL (VIT D3) 400 UNIT (10 MCG) TABLET PO SCH (13:09)
[2024-05-19] MEDS: IBUPROFEN 600 MG TABLET (FP) PO PRN (18:30)
[2024-05-21 12:12] LABS: URINE APPEARANCE CLEAR; URINE BILIRUBIN NEGATIVE (NEGATIVE); URINE COLOR YELLOW; URINE GLUCOSE (UA) NEGATIVE (NEGATIVE); URINE KETONE NEGATIVE (NEGATIVE); URINE LEUK ESTERASE NEGATIVE (NEGATIVE); URINE NITRITE NEGATIVE (NEGATIVE); URINE PROTEIN NEGATIVE (NEGATIVE); URINE UROBILINOGEN 0.2 mg/dL (0.2-1.0)
[2024-05-22] MEDS: amLODIPine BESYLATE 10 MG TABLET (FP) PO SCH (10:24)
[2024-05-24] MEDS: HEPATITIS A VIRUS VACCINE/PF 1440 UNIT/1 ML IM ONE (15:46)
[2024-05-24] MEDS: ACETAMINOPHEN 325 MG TABLET (FP) PO PRN (21:58)
[2024-05-26 13:16] LABS: HIV INTERPRETATION NEGATIVE (NEGATIVE)
[2024-05-30 06:35] VITALS: BP 139/78; PULSE 65; RESP 18; TEMP 97.3
== END 2024-05-30 09:56 | disposition home or self-care (01) | DRG 895 ==
LOC: YASAS 12:46 → Y3W 13:52
PROVIDERS: ADMIT Psychiatry & Neurology Pain Medicine; ATTEND Psychiatry & Neurology Pain Medicine
PROC: HZ42ZZZ Group Counseling for Substance Abuse Treatment, Cognitive-Behavioral (ICD-10-PCS; principal; 2024-05-16)
DX: F10.20 Alcohol dependence, uncomplicated (principal); F14.20 Cocaine dependence, uncomplicated; L02.416 Cutaneous abscess of left lower limb; F17.210 Nicotine dependence, cigarettes, uncomplicated; E78.5 Hyperlipidemia, unspecified; I10 Essential (primary) hypertension; B95.62 Methicillin resistant Staphylococcus aureus infection as the cause of diseases classified elsewhere; Z85.46 Personal history of malignant neoplasm of prostate; Z88.0 Allergy status to penicillin
CPT/HCPCS: 36415; 71046-TC-FY; 80053; 80305; 80307; 81003; 82140; 82306; 82962; 83735; 85027; 86803; 87070; 87186; 87205; 87389; 87811; 90632